=== PATIENT | female | born 1965 ===

== ENCOUNTER 2021-06-04 14:52 | Outpatient (CLI) | payer OTHER ==
[~2021-06-04 14:52] MED LIST: TENORMIN0.5 MG/ML IV
== END 2021-06-04 15:02 | disposition home or self-care (01) ==
LOC: RAD 14:52
DX: M62.838 Other muscle spasm (principal); M54.2 Cervicalgia; M54.5 Low back pain; M41.35 Thoracogenic scoliosis, thoracolumbar region; M54.6 Pain in thoracic spine